=== PATIENT | female | born 1965 | race African-American/Black ===

== ENCOUNTER 2021-04-04 14:15 | Emergency (ER) | payer OTHER ==
[~2021-04-04] VITALS: Ht 177.8 cm; Wt 93.0 kg
== END 2021-04-04 15:28 | disposition home or self-care (01) ==
LOC: ER 14:56
DX: R06.02 Shortness of breath (principal)
CPT/HCPCS: 93005; 99282

== ENCOUNTER 2021-05-14 10:37 | Observation (INO) | payer OTHER ==
[~2021-05-14] VITALS: Ht 180.3 cm; Wt 93.4 kg
[2021-05-14] VITALS (7 sets, daily range): BP systolic 122–161; BP diastolic 75–93
[2021-05-14] MEDS ORDERED: ASPIRIN 81 MG CHEW TAB PO ONE ×2 (10:45→12:30)
[2021-05-14 10:59] LABS: BASOPHILS # (AUTO) 0.1 (0.0-0.1); EOSINOPHILS # (AUTO) 0.1 (0.0-0.4); EOSINOPHILS % 1.5 % (0.0-6.0); HEMATOCRIT 37.7 % (34.2-44.1); HEMOGLOBIN 11.8 g/dL (12.0-16.0); LYMPHOCYTES # (AUTO) 3.7 (1.0-3.2); LYMPHOCYTES % 45.9 % (18.0-39.1); MEAN CORPUSCULAR HEMOGLOBIN 28.1 pg (28-32); MEAN CORPUSCULAR HGB CONC 31.3 g/dL (31-35); MEAN CORPUSCULAR VOLUME 89.8 fL (81-99); MONOCYTES # (AUTO) 0.5 (0.2-0.8); MONOCYTES % 5.8 % (4.4-11.3); NEUTROPHILS # (AUTO) 3.7 (2.1-6.9); NEUTROPHILS % 45.6 % (38.7-80.0); PLATELET COUNT 274 x10e3/uL (140-360); RED CELL DISTRIBUTION WIDTH 14.5 % (11.7-14.4)
[2021-05-14 11:15] LABS: AMPHETAMINES SCREEN,URINE NEGATIVE (NEGATIVE); BENZODIAZEPINES SCREEN,URINE POSITIVE (NEGATIVE); PHENCYCLIDINE SCREEN,URINE NEGATIVE (NEGATIVE)
[2021-05-14 11:22] LABS: ALBUMIN 3.7 g/dL (3.5-5.0); ALBUMIN/GLOBULIN RATIO 0.9 (0.8-2.0); ANION GAP 12.8 mmol/L (8-16); CALCIUM 9.4 mg/dL (8.4-10.2); CREATININE, SERUM 0.92 mg/dL (0.57-1.11); POTASSIUM 3.8 mmol/L (3.5-5.1)
[2021-05-14 11:59] LABS: CREATINE KINASE 81 IU/L (29-168)
[2021-05-14] MEDS ORDERED: ONDANSETRON HCL INJ 2MG/ML 2ML 2 MG/ML VIAL IV PRN (12:30)
[2021-05-14] MEDS ORDERED: Morphine 4mg Syringe 4 MG/ML INJ IV PRN (12:30)
[2021-05-14] MEDS ORDERED: ENOXAPARIN SOD INJ 40 MG/0.4 ML SYR SC SCH (17:15)
[2021-05-14] MEDS: FAMOTIDINE 20 MG TAB PO SCH (18:00)
[2021-05-14 18:56] LABS: CREATINE KINASE MB 0.8 ng/mL (0-5.0)
[2021-05-14] MEDS: METOPROLOL SUCCINATE 25 MG TAB XL PO SCH (20:14)
[2021-05-14] MEDS ORDERED: ATORVASTATIN 40 MG TAB PO SCH (21:00)
[2021-05-15 03:35] VITALS: BP 130/83
[2021-05-15 05:03] LABS: BASOPHILS # (AUTO) 0.1 (0.0-0.1); EOSINOPHILS # (AUTO) 0.1 (0.0-0.4); EOSINOPHILS % 1.6 % (0.0-6.0); HEMATOCRIT 37.2 % (34.2-44.1); HEMOGLOBIN 11.6 g/dL (12.0-16.0); LYMPHOCYTES # (AUTO) 3.4 (1.0-3.2); LYMPHOCYTES % 48.4 % (18.0-39.1); MEAN CORPUSCULAR HGB CONC 31.2 g/dL (31-35); MEAN CORPUSCULAR VOLUME 89.6 fL (81-99); MONOCYTES # (AUTO) 0.5 (0.2-0.8); MONOCYTES % 6.8 % (4.4-11.3); NEUTROPHILS % 42.1 % (38.7-80.0); PLATELET COUNT 227 x10e3/uL (140-360); RED BLOOD COUNT 4.15 x10e6/uL (3.6-5.1); RED CELL DISTRIBUTION WIDTH 14.4 % (11.7-14.4)
[2021-05-15 05:34] LABS: ALBUMIN 3.3 g/dL (3.5-5.0); ALBUMIN/GLOBULIN RATIO 0.9 (0.8-2.0); ANION GAP 13.9 mmol/L (8-16); CALCIUM 9.2 mg/dL (8.4-10.2); CREATININE, SERUM 0.94 mg/dL (0.57-1.11); POTASSIUM 3.9 mmol/L (3.5-5.1)
[2021-05-15 05:50] LABS: CHOL/HDL RATIO 3.8 (3.0-3.6)
[2021-05-15 05:56] LABS: CREATINE KINASE MB 0.8 ng/mL (0-5.0)
[2021-05-15] MEDS: FAMOTIDINE 20 MG TAB PO SCH (08:15)
[2021-05-15] MEDS: METOPROLOL SUCCINATE 25 MG TAB XL PO SCH (08:17)
[2021-05-15 08:50] VITALS: BP 143/83
[2021-05-15 08:52] VITALS: BP 143/83
[2021-05-15] MEDS ORDERED: ASPIRIN 81 MG ENTERIC COATED PO SCH (09:00)
[2021-05-15] MEDS ORDERED: CLOPIDOGREL BISULFATE 75 MG TAB PO SCH (09:00)
[2021-05-15] MEDS ORDERED: LISINOPRIL 20 MG TAB PO SCH (09:00)
[2021-05-15 12:37] VITALS: BP 128/80
[2021-05-15] MEDS ORDERED: ASPIRIN EC81 MG PO (12:56)
[2021-05-15] MEDS ORDERED: PLAVIX75 MG PO (12:56)
[2021-05-15] MEDS ORDERED: Atorvastatin PO (12:58)
[2021-05-15] MEDS ORDERED: TOPROL XL25 MG PO (12:58)
[2021-05-15] MEDS ORDERED: FAMOTIDINE20 MG PO (12:58)
[2021-05-15] MEDS ORDERED: LISINOPRIL20 MG PO (12:58)
== END 2021-05-15 13:30 | disposition home or self-care (01) ==
LOC: ER 10:42 → ERHOLD 12:30 → IMCU 14:41
PROVIDERS: ADMIT Internal Medicine; ATTEND Internal Medicine
DX: U07.1 COVID-19 (principal); J12.82 Pneumonia due to coronavirus disease 2019; I25.10 Atherosclerotic heart disease of native coronary artery without angina pectoris; I11.9 Hypertensive heart disease without heart failure; Z87.891 Personal history of nicotine dependence; Z20.822 Contact with and (suspected) exposure to COVID-19; E78.5 Hyperlipidemia, unspecified; Z95.5 Presence of coronary angioplasty implant and graft
CPT/HCPCS: 36415 ×2; 71045; 80053 ×2; 80061; 80307; 82550 ×2; 82553 ×2; 84484 ×2; 85025 ×2; 85379; 93005; 93306; 94799 ×2; 99284; G0378 ×2; J1650; U0002

== ENCOUNTER 2021-08-24 12:09 | Emergency (ER) | payer OTHER ==
[~2021-08-24] VITALS: Ht 180.3 cm; Wt 93.4 kg
[~2021-08-24 12:09] MED LIST: ASPIRIN EC81 MG PO; Atorvastatin PO; FAMOTIDINE20 MG PO; LISINOPRIL20 MG PO; PLAVIX75 MG PO; TOPROL XL25 MG PO
[2021-08-24] MEDS ORDERED: ASPIRIN 325 MG TAB PO ONE (12:15)
[2021-08-24 12:35] LABS: BASOPHILS # (AUTO) 0.1 (0.0-0.1); BASOPHILS % 0.9 % (0.0-1.0); EOSINOPHILS # (AUTO) 0.1 (0.0-0.4); EOSINOPHILS % 1.5 % (0.0-6.0); HEMATOCRIT 37.2 % (34.2-44.1); HEMOGLOBIN 11.4 g/dL (12.0-16.0); LYMPHOCYTES # (AUTO) 3.3 (1.0-3.2); LYMPHOCYTES % 44.5 % (18.0-39.1); MEAN CORPUSCULAR HEMOGLOBIN 28.4 pg (28-32); MEAN CORPUSCULAR HGB CONC 30.6 g/dL (31-35); MEAN CORPUSCULAR VOLUME 92.5 fL (81-99); MONOCYTES # (AUTO) 0.6 (0.2-0.8); MONOCYTES % 7.6 % (4.4-11.3); NEUTROPHILS # (AUTO) 3.4 (2.1-6.9); NEUTROPHILS % 45.2 % (38.7-80.0); PLATELET COUNT 279 x10e3/uL (140-360); RED BLOOD COUNT 4.02 x10e6/uL (3.6-5.1); RED CELL DISTRIBUTION WIDTH 14.5 % (11.7-14.4)
[2021-08-24 12:57] LABS: ALBUMIN 3.4 g/dL (3.5-5.0); ALBUMIN/GLOBULIN RATIO 0.9 (0.8-2.0); ANION GAP 11.8 mmol/L (8-16); CALCIUM 8.8 mg/dL (8.4-10.2); CREATININE, SERUM 0.93 mg/dL (0.57-1.11); POTASSIUM 3.8 mmol/L (3.5-5.1)
[2021-08-24 14:02] VITALS: BP 145/88
== END 2021-08-24 14:03 | disposition home or self-care (01) ==
LOC: ER 12:14
DX: R07.89 Other chest pain (principal); R20.2 Paresthesia of skin; I10 Essential (primary) hypertension; E78.5 Hyperlipidemia, unspecified; I25.10 Atherosclerotic heart disease of native coronary artery without angina pectoris; F41.9 Anxiety disorder, unspecified; Z95.5 Presence of coronary angioplasty implant and graft; R94.31 Abnormal electrocardiogram [ECG] [EKG]
CPT/HCPCS: 36415; 71045; 80053; 84484; 85025; 85379; 93005; 99284

== ENCOUNTER 2023-10-10 16:42 | Emergency (ER) | payer SELFPAY ==
[~2023-10-10] VITALS: Ht 180.3 cm; Wt 94.3 kg
[2023-10-10 17:17] VITALS: PULSE 81; RESP 18; TEMP 97.1; O2SAT 100
[2023-10-10] MEDS: ACETAMINOPHEN 325 MG TAB PO STA (19:11)
== END 2023-10-10 19:14 | disposition home or self-care (01) ==
LOC: ER 17:42
DX: S00.83XA Contusion of other part of head, initial encounter (principal); R51.9 Headache, unspecified; Y04.0XXA Assault by unarmed brawl or fight, initial encounter; Y92.009 Unspecified place in unspecified non-institutional (private) residence as the place of occurrence of the external cause; I10 Essential (primary) hypertension; I25.10 Atherosclerotic heart disease of native coronary artery without angina pectoris; Z95.5 Presence of coronary angioplasty implant and graft; F41.9 Anxiety disorder, unspecified; E78.5 Hyperlipidemia, unspecified; Z79.899 Other long term (current) drug therapy; Z79.82 Long term (current) use of aspirin
CPT/HCPCS: 70450; 70486; 99283

== ENCOUNTER 2024-02-27 12:13 | Observation (INO) | payer OTHER ==
[~2024-02-27] VITALS: Ht 180.3 cm; Wt 94.3 kg
[2024-02-27 12:21] VITALS: TEMP 98.3
[2024-02-27 12:47] LABS: BASOPHILS # (AUTO) 0.1 (0.0-0.1); BASOPHILS % 0.7 % (0.0-1.0); EOSINOPHILS # (AUTO) 0.1 (0.0-0.4); EOSINOPHILS % 1.4 % (0.0-6.0); HEMATOCRIT 40.1 % (34.2-44.1); HEMOGLOBIN 12.9 g/dL (12.0-16.0); LYMPHOCYTES # (AUTO) 3.9 (1.0-3.2); LYMPHOCYTES % 42.6 % (18.0-39.1); MEAN CORPUSCULAR HEMOGLOBIN 29.1 pg (28-32); MEAN CORPUSCULAR HGB CONC 32.2 g/dL (31-35); MEAN CORPUSCULAR VOLUME 90.3 fL (81-99); MONOCYTES # (AUTO) 0.7 (0.2-0.8); MONOCYTES % 7.4 % (4.4-11.3); NEUTROPHILS # (AUTO) 4.4 (2.1-6.9); NEUTROPHILS % 47.7 % (38.7-80.0); PLATELET COUNT 322 x10e3/uL (140-360); RED BLOOD COUNT 4.44 x10e6/uL (3.6-5.1); RED CELL DISTRIBUTION WIDTH 14.6 % (11.7-14.4); WHITE BLOOD COUNT 9.22 x10e3/uL (4.8-10.8)
[2024-02-27] MEDS: ASPIRIN 81 MG CHEW TAB PO ONE (13:00)
[2024-02-27 13:03] LABS: INR 0.9; PROTHROMBIN TIME 12.7 seconds (11.9-14.5)
[2024-02-27 13:10] LABS: ALANINE AMINOTRANSFERASE 22 IU/L (0-55); ALBUMIN 3.9 g/dL (3.5-5.0); ALKALINE PHOSPHATASE 122 IU/L (40-150); ANION GAP 14.1 mmol/L (8-16); BILIRUBIN,TOTAL 0.7 mg/dL (0.2-1.2); BLOOD UREA NITROGEN 14 mg/dL (7-26); BUN/CREATININE RATIO 13 (6-25); CALCIUM 9.7 mg/dL (8.4-10.2); CARBON DIOXIDE 25 mmol/L (22-29); CHLORIDE 105 mmol/L (98-107); CREATINE KINASE 85 IU/L (29-168); CREATININE, SERUM 1.04 mg/dL (0.57-1.11); EST GLOMERULAR FILTRATION RATE 63 ML/MIN (>=60); GLUCOSE 70 mg/dL (74-118); MAGNESIUM 2.1 MG/DL (1.3-2.1); POTASSIUM 4.1 mmol/L (3.5-5.1); SODIUM 140 mmol/L (136-145); TOTAL PROTEIN 7.9 g/dL (6.5-8.1)
[2024-02-27 13:59] LABS: TROPONIN I < 0.001 ng/mL (0-0.300)
[2024-02-27] MEDS ORDERED: NITROGLYCERIN 0.4 MG SUBL SL PRN (14:30)
[2024-02-27] MEDS ORDERED: Morphine 2mg Syringe 2 MG/ML SYR IV PRN (14:30)
[2024-02-27] MEDS ORDERED: ONDANSETRON HCL INJ 2MG/ML 2ML 2 MG/ML VIAL IV PRN (14:30)
[2024-02-27 16:30] VITALS: PULSE 72; RESP 16
[2024-02-27 17:00] VITALS: BP 134/88; PULSE 70; RESP 19; TEMP 97.6; O2SAT 100
[2024-02-27 18:15] VITALS: BP 134/88; PULSE 70; RESP 19; TEMP 97.6; O2SAT 100
[2024-02-27 20:00] VITALS: BP 138/84; PULSE 58; RESP 19; TEMP 97.7; O2SAT 100
[2024-02-28] VITALS (7 sets, daily range): BP systolic 118–136; BP diastolic 60–82; PULSE 55–66; RESP 16–20; TEMP 97.3–98.4; O2SAT 100
[2024-02-28 02:07] LABS: CREATINE KINASE 76 IU/L (29-168)
[2024-02-28 02:12] LABS: TROPONIN I < 0.001 ng/mL (0-0.300)
[2024-02-28] MEDS ORDERED: MELATONIN 3 MG TAB PO PRN (06:00)
[2024-02-28] MEDS ORDERED: DOCUSATE SODIUM 100 MG CAP PO PRN (06:00)
[2024-02-28] MEDS ORDERED: GUAIFENESIN/DEXTROMETHORPHAN LIQD 5 ML UDC PO PRN (06:00)
[2024-02-28] MEDS ORDERED: ACETAMINOPHEN 325 MG TAB PO PRN (06:00)
[2024-02-28] MEDS ORDERED: HYDRALAZINE HCL 20 MG/ML VIAL IV PRN (06:00)
[2024-02-28] MEDS ORDERED: MAGNESIUM/ALUMINUM/SIMETHICONE 30 ML UDC PO PRN (06:00)
[2024-02-28 07:02] LABS: BASOPHILS # (AUTO) 0.1 (0.0-0.1); BASOPHILS % 1.1 % (0.0-1.0); EOSINOPHILS # (AUTO) 0.1 (0.0-0.4); EOSINOPHILS % 1.6 % (0.0-6.0); HEMATOCRIT 40.8 % (34.2-44.1); HEMOGLOBIN 12.5 g/dL (12.0-16.0); LYMPHOCYTES # (AUTO) 3.6 (1.0-3.2); LYMPHOCYTES % 44.6 % (18.0-39.1); MEAN CORPUSCULAR HEMOGLOBIN 28.9 pg (28-32); MEAN CORPUSCULAR HGB CONC 30.6 g/dL (31-35); MEAN CORPUSCULAR VOLUME 94.2 fL (81-99); MONOCYTES # (AUTO) 0.5 (0.2-0.8); MONOCYTES % 6.8 % (4.4-11.3); NEUTROPHILS # (AUTO) 3.7 (2.1-6.9); NEUTROPHILS % 45.6 % (38.7-80.0); PLATELET COUNT 257 x10e3/uL (140-360); RED BLOOD COUNT 4.33 x10e6/uL (3.6-5.1); RED CELL DISTRIBUTION WIDTH 14.5 % (11.7-14.4); WHITE BLOOD COUNT 7.99 x10e3/uL (4.8-10.8)
[2024-02-28 07:31] LABS: ALBUMIN 3.5 g/dL (3.5-5.0); ANION GAP 14.2 mmol/L (8-16); BILIRUBIN,TOTAL 0.9 mg/dL (0.2-1.2); CALCIUM 9.6 mg/dL (8.4-10.2); CREATININE, SERUM 0.95 mg/dL (0.57-1.11); POTASSIUM 4.2 mmol/L (3.5-5.1); TOTAL PROTEIN 7.1 g/dL (6.5-8.1)
[2024-02-28 07:51] LABS: CREATINE KINASE 76 IU/L (29-168)
[2024-02-28 08:05] LABS: TROPONIN I < 0.001 ng/mL (0-0.300)
[2024-02-28] MEDS ORDERED: LISINOPRIL 20 MG TAB PO SCH (09:00)
[2024-02-28] MEDS ORDERED: CLOPIDOGREL BISULFATE 75 MG TAB PO SCH (09:00)
[2024-02-28] MEDS: METOPROLOL SUCCINATE 25 MG TAB XL PO SCH (09:36)
[2024-02-28] MEDS: ASPIRIN 81 MG ENTERIC COATED PO SCH (09:36)
[2024-02-28] MEDS: CLOPIDOGREL BISULFATE 75 MG TAB PO SCH (09:37)
[2024-02-28] MEDS: ATORVASTATIN 40 MG TAB PO SCH (20:33)
[2024-02-29] VITALS: BP 110/79; PULSE 55; RESP 20; TEMP 97.2; O2SAT 99
[2024-02-29 05:46] VITALS: BP 118/63; PULSE 63; RESP 19; TEMP 98.1; O2SAT 100
[2024-02-29] MEDS ORDERED: REGADENOSON 0.4 MG/5 ML SYR IV ONE (09:21)
[2024-02-29 12:29] VITALS: BP 147/92; PULSE 63; RESP 17; TEMP 98.1; O2SAT 100
[2024-02-29] MEDS: LISINOPRIL 20 MG TAB PO SCH (12:29)
[2024-02-29] MEDS ORDERED: PLAVIX75 MG PO (13:36)
[2024-02-29] MEDS ORDERED: LIPITOR10 MG PO (13:36)
[2024-02-29] MEDS ORDERED: LISINOPRIL20 MG PO (13:36)
[2024-02-29] MEDS ORDERED: TOPROL XL25 MG PO (13:36)
[2024-02-29] MEDS ORDERED: ASPIRIN EC81 MG PO (13:36)
[2024-02-29] MEDS ORDERED: BUSPIRONE HCL5 MG PO (13:39)
[2024-02-29] MEDS ORDERED: METOPROLOL SUCCINATE 25 MG TAB XL PO SCH (21:00)
== END 2024-02-29 16:10 | disposition home or self-care (01) ==
LOC: ER 12:17 → ERHOLD 14:25 → MED/SURG3 16:55
PROVIDERS: ADMIT Internal Medicine; ATTEND Internal Medicine
DX: R07.9 Chest pain, unspecified (principal); F41.9 Anxiety disorder, unspecified; I25.10 Atherosclerotic heart disease of native coronary artery without angina pectoris; I25.2 Old myocardial infarction; Z95.5 Presence of coronary angioplasty implant and graft; I10 Essential (primary) hypertension; Z87.891 Personal history of nicotine dependence; I07.1 Rheumatic tricuspid insufficiency; E78.5 Hyperlipidemia, unspecified; R51.9 Headache, unspecified; Z79.02 Long term (current) use of antithrombotics/antiplatelets; Z79.82 Long term (current) use of aspirin; Z79.899 Other long term (current) drug therapy
CPT/HCPCS: 36415 ×2; 71045; 78452; 80053 ×2; 80061; 82550 ×2; 83735; 83880; 84484 ×2; 85025 ×2; 85610; 85730; 93005; 93017; 93306; 99284; A9502; G0378 ×3; J2785

== ENCOUNTER 2024-05-04 23:29 | Emergency (ER) | payer OTHER ==
[~2024-05-04] VITALS: Ht 175.3 cm; Wt 97.5 kg
[~2024-05-04 23:29] MED LIST changes: +BUSPIRONE HCL5 MG PO; +LIPITOR10 MG PO
[2024-05-04] MEDS: KETOROLAC TROMETHAMINE 30 MG/ML VIAL IV STA (23:57)
[2024-05-04] MEDS: FAMOTIDINE 20 MG/2 ML VIAL IV STA (23:57)
[2024-05-05 00:12] LABS: BASOPHILS # (AUTO) 0.1 (0.0-0.1); BASOPHILS % 0.6 % (0.0-1.0); EOSINOPHILS # (AUTO) 0.2 (0.0-0.4); EOSINOPHILS % 1.3 % (0.0-6.0); HEMOGLOBIN 12.2 g/dL (12.0-16.0); LYMPHOCYTES # (AUTO) 4.5 (1.0-3.2); MEAN CORPUSCULAR HEMOGLOBIN 28.4 pg (28-32); MEAN CORPUSCULAR HGB CONC 32.1 g/dL (31-35); MEAN CORPUSCULAR VOLUME 88.4 fL (81-99); MONOCYTES # (AUTO) 0.8 (0.2-0.8); MONOCYTES % 6.8 % (4.4-11.3); PLATELET COUNT 309 x10e3/uL (140-360); RED CELL DISTRIBUTION WIDTH 14.2 % (11.7-14.4); WHITE BLOOD COUNT 11.52 x10e3/uL (4.8-10.8)
[2024-05-05 00:26] LABS: ALBUMIN 3.8 g/dL (3.5-5.0); ANION GAP 15.6 mmol/L (8-16); BILIRUBIN,TOTAL 0.9 mg/dL (0.2-1.2); CALCIUM 9.5 mg/dL (8.4-10.2); CREATININE, SERUM 1.01 mg/dL (0.57-1.11); POTASSIUM 3.6 mmol/L (3.5-5.1); TOTAL PROTEIN 7.8 g/dL (6.5-8.1)
[2024-05-05 00:32] LABS: TROPONIN I 0.001 ng/mL (0-0.300)
[2024-05-05] MEDS ORDERED: NITROGLYCERIN 0.1MG/HR PATCH ONE (00:43)
[2024-05-05] MEDS: NITROGLYCERIN 0.1MG/HR PATCH TOP SCH (00:47)
[2024-05-05 01:30] LABS: AMPHETAMINES SCREEN,URINE NEGATIVE (NEGATIVE); BENZODIAZEPINES SCREEN,URINE NEGATIVE (NEGATIVE); CANNABINOIDS SCREEN,URINE NEGATIVE (NEGATIVE); COCAINE SCREEN,URINE NEGATIVE (NEGATIVE); METHADONE SCREEN, URINE NEGATIVE (NEGATIVE); OPIATES SCREEN,URINE NEGATIVE (NEGATIVE); PHENCYCLIDINE SCREEN,URINE NEGATIVE (NEGATIVE)
[2024-05-05 03:19] VITALS: PULSE 83; RESP 18; TEMP 98.6
[2024-05-05 03:36] LABS: CREATINE KINASE 74 IU/L (29-168)
[2024-05-05 03:50] LABS: TROPONIN I < 0.001 ng/mL (0-0.300)
[2024-05-05 04:09] VITALS: BP 118/87; PULSE 78; RESP 16; TEMP 98.8; O2SAT 98
== END 2024-05-05 04:08 | disposition home or self-care (01) ==
LOC: ER 23:35
DX: R06.02 Shortness of breath (principal); R07.89 Other chest pain; I10 Essential (primary) hypertension; E78.5 Hyperlipidemia, unspecified; I25.10 Atherosclerotic heart disease of native coronary artery without angina pectoris; F41.9 Anxiety disorder, unspecified; I25.2 Old myocardial infarction; Z95.5 Presence of coronary angioplasty implant and graft
CPT/HCPCS: 36415; 71045; 80053; 80307; 82550; 83690; 83880; 84484; 85025; 93005 ×2; 99284; J1885

== ENCOUNTER 2024-10-24 16:04 | Emergency (ER) | payer OTHER ==
[~2024-10-24] VITALS: Ht 175.3 cm; Wt 97.5 kg
[2024-10-24 18:28] LABS: BASOPHILS % 0.7 % (0.0-1.0); EOSINOPHILS % 1.3 % (0.0-6.0); LYMPHOCYTES % 43.6 % (18.0-39.1); MONOCYTES % 6.5 % (4.4-11.3); NEUTROPHILS % 47.7 % (38.7-80.0); RED CELL DISTRIBUTION WIDTH 14.6 % (11.7-14.4)
[2024-10-24 18:43] LABS: EST GLOMERULAR FILTRATION RATE 61.0 ML/MIN (>=60)
[2024-10-24 20:16] VITALS: PULSE 67; RESP 18; TEMP 98; O2SAT 97
== END 2024-10-24 20:26 | disposition home or self-care (01) ==
LOC: ER 17:58
DX: R19.7 Diarrhea, unspecified (principal); I10 Essential (primary) hypertension; E78.5 Hyperlipidemia, unspecified; I25.10 Atherosclerotic heart disease of native coronary artery without angina pectoris; F41.9 Anxiety disorder, unspecified; I25.2 Old myocardial infarction; Z95.5 Presence of coronary angioplasty implant and graft; R94.31 Abnormal electrocardiogram [ECG] [EKG]
CPT/HCPCS: 36415; 74176; 80053; 83690; 85025; 93005; 99284